=== PATIENT | male | born 1950 | race Two or more races ===

== ENCOUNTER 2021-09-02 02:29 | Inpatient (IN) | payer MEDICARE, MEDICAID ==
[~2021-09-02] VITALS: Ht 170.2 cm; Wt 67.6 kg
[2021-09-02 02:59] LABS: BASOPHILS % (AUTO) 0.9 % (0.0-2.0); EOSINOPHILS % (AUTO) 0.1 % (1.0-6.0); HEMOGLOBIN 12.8 g/dL (13.5-17.5); LYMPHOCYTES # (AUTO) 1.4 K/uL (1.0-4.8); LYMPHOCYTES % (AUTO) 10.5 % (22.0-44.0); MEAN CORPUSCULAR HEMOGLOBIN 26.4 pg (26.0-34.0); MEAN CORPUSCULAR HGB CONC 32.9 G/dL (31.0-37.0); MEAN CORPUSCULAR VOLUME 80 fL (80-100); MONOCYTES # (AUTO) 1.1 K/uL (0.1-1.0); MONOCYTES % (AUTO) 8.3 % (2.0-9.0); NEUTROPHILS # (AUTO) 10.9 K/uL (1.8-7.7); NEUTROPHILS % (AUTO) 80.2 % (40.0-70.0); PLATELET COUNT (AUTO) 492 K/uL (150-450); RED BLOOD CELL COUNT(AUTO) 4.86 MIL/uL (4.50-5.90); RED CELL DISTRIBUTION WIDTH 20.5 % (11.5-14.5)
[2021-09-02 03:12] LABS: ANION GAP 13 mmol/L (8-16); CALCIUM, TOTAL 9.5 mg/dL (8.8-10.5); CARBON DIOXIDE 27 mmol/L (22-29); CHLORIDE 93 mmol/L (98-107); GLUCOSE,RANDOM 140 mg/dL (70-110); SODIUM SERUM 133 mmol/L (136-145); UREA NITROGEN, BLOOD 42 mg/dL (7-18)
[2021-09-02 03:13] LABS: GLOMERULAR FILTR. RATE CALC 40 mL/min (>60)
[2021-09-02 03:15] LABS: ALANINE AMINOTRANSFERASE 135 U/L (12-78); ALBUMIN 3.4 g/dL (3.4-5.0); ALKALINE PHOSPHATASE 115 U/L (46-116); ASPARTATE AMINOTRANSFERASE 45 U/L (15-37); BILIRUBIN,TOTAL 3.9 mg/dL (0.1-1.0); TOTAL PROTEIN, SERUM 7.9 g/dL (6.4-8.2)
[2021-09-02] MEDS ORDERED: DIAZ2 PO ×2 (03:41→03:43)
[2021-09-02] MEDS ORDERED: ALPR-705 PO (03:43)
[2021-09-02] MEDS ORDERED: APIX5TAB PO (03:48)
[2021-09-02] MEDS ORDERED: SPIR-37 PO (03:48)
[2021-09-02] MEDS ORDERED: AMIO200T68 PO (03:48)
[2021-09-02] MEDS ORDERED: FURO40 PO (03:48)
[2021-09-02] MEDS ORDERED: DAPA10TA PO (03:48)
[2021-09-02] MEDS ORDERED: VALS40TA4 PO (03:48)
[2021-09-02] MEDS ORDERED: ASPI-1450 PO (03:48)
[2021-09-02 04:03] LABS: COVID AG,FIA SOURCE NASAL SWAB
[2021-09-02] MEDS ORDERED: HALOPERIDOL 5 MG TABLET PO PRN (04:15)
[2021-09-02] MEDS: LORazepam 2 MG TABLET PO PRN (04:18)
[2021-09-02 06:41] LABS: APPEARANCE,URINE CLEAR (CLEAR); BILIRUBIN,URINE NEGATIVE (NEGATIVE); GLUCOSE, URINE (UA) >=1000 mg/dL (NEGATIVE); KETONES,URINE NEGATIVE (NEGATIVE); LEUKOCYTE ESTERASE ,URINE NEGATIVE (NEGATIVE); NITRATE,URINE NEGATIVE (NEGATIVE); OCCULT BLOOD,URINE NEGATIVE (NEGATIVE); PROTEIN,URINE NEGATIVE (NEGATIVE); SPECIFIC GRAVITIY, URINE 1.018 (1.003-1.030); UROBILINOGEN,URINE <=1.0 mg/dL (<=1.0)
[2021-09-02 06:47] LABS: AMPHET/METH SCREEN,URINE NEGATIVE (NEGATIVE); BARBITURATE SCREEN, URINE NEGATIVE (NEGATIVE); BENZODIAZEPINES SCREEN,URINE NEGATIVE (NEGATIVE); CANNABINOID SCREEN,URINE NEGATIVE (NEGATIVE); COCAINE SCREEN,URINE NEGATIVE (NEGATIVE); METHADONE SCREEN, URINE NEGATIVE (NEGATIVE); OPIATE SCREEN,URINE NEGATIVE (NEGATIVE)
[2021-09-02 06:49] LABS: BACTERIA,URINE None Seen /HPF (None Seen); RBC,URINE None Seen /HPF (0-2); WBC,URINE None Seen /HPF (0-5)
[2021-09-02 06:53] LABS: PHENCYCLIDINE SCREEN,URINE NEGATIVE (NEGATIVE)
[2021-09-02 10:57] VITALS: BP 140/43
[2021-09-02] MEDS ORDERED: ChlordiazePOXIDE HCL 25 MG CAPSULE PO PRN (11:45)
[2021-09-02] MEDS: FLUoxetine HCL 20 MG CAPSULE PO SCH (12:15)
[2021-09-02 12:39] VITALS: BP 107/53
[2021-09-02 12:40] VITALS: BP 107/53
[2021-09-02] MEDS: SPIRONOLACTONE 25 MG TABLET PO SCH (14:50)
[2021-09-02 16:44] VITALS: BP 94/48
[2021-09-02 16:51] VITALS: BP 108/65
[2021-09-02] MEDS: APIXABAN 5 MG TABLET PO SCH (17:00)
[2021-09-02] MEDS: AMIODARONE HCL 200 MG TABLET PO SCH (17:06)
[2021-09-02] MEDS: VALSARTAN 40 MG TABLET PO SCH (17:06)
[2021-09-02 17:32] LABS: GLUCOMETER DEV NAME(LOC) 3EX.2; GLUCOSE,POINT OF CARE 134 MG/DL (70-110)
[2021-09-03 05:32] LABS: GLUCOMETER DEV NAME(LOC) 3E.I 2; GLUCOSE,POINT OF CARE 107 MG/DL (70-110)
[2021-09-03] MEDS ORDERED: ChlordiazePOXIDE HCL 25 MG CAPSULE PO PRN (07:00)
[2021-09-03 08:00] VITALS: BP 113/57
[2021-09-03] MEDS ORDERED: ChlordiazePOXIDE HCL 25 MG CAPSULE PO SCH (09:00)
[2021-09-03] MEDS: ASPIRIN 81 MG CHEWABLE TABLET PO SCH (09:05)
[2021-09-03] MEDS: FLUoxetine HCL 20 MG CAPSULE PO SCH (09:05)
[2021-09-03] MEDS: APIXABAN 5 MG TABLET PO SCH ×2 (09:07→16:45)
[2021-09-03] MEDS: FUROSEMIDE 40 MG TABLET PO SCH (09:07)
[2021-09-03] MEDS: VALSARTAN 40 MG TABLET PO SCH ×2 (09:07→17:00)
[2021-09-03] MEDS: AMIODARONE HCL 200 MG TABLET PO SCH ×2 (09:07→17:00)
[2021-09-03] MEDS: SPIRONOLACTONE 25 MG TABLET PO SCH (09:09)
[2021-09-03] MEDS ORDERED: MAGNESIUM HYDROXIDE SUSPENSION 30 ML UDCUP PO PRN (11:15)
[2021-09-03] MEDS ORDERED: GuaiFENesin/D-METHORPHAN [SUGAR-FREE] 200-20MG/10 ML SYRUP UDCUP PO PRN (11:15)
[2021-09-03] MEDS ORDERED: ACETAMINOPHEN 325 MG TABLET PO PRN (11:15)
[2021-09-03] MEDS ORDERED: ALBUTEROL SULFATE HFA 90 MCG/PUFF 8 GM INHALER IH PRN (11:15)
[2021-09-03] MEDS ORDERED: PETROLATUM,WHITE 28 GM JELLY TP PRN (11:15)
[2021-09-03] MEDS ORDERED: NICOTINE 14 MG/24 HOUR PATCH TD PRN (11:15)
[2021-09-03] MEDS ORDERED: CloNIDine HCL 0.1 MG TABLET PO PRN (11:15)
[2021-09-03] MEDS ORDERED: LOPERAMIDE HCL 2 MG CAPSULE PO PRN (11:15)
[2021-09-03] MEDS ORDERED: DOCUSATE SODIUM 100 MG CAPSULE PO PRN (11:15)
[2021-09-03] MEDS ORDERED: MAG HYDROX/AL HYDROX/SIMETH ES 30 ML SUSPENSION UDCUP PO PRN (11:15)
[2021-09-03] MEDS ORDERED: ONDANSETRON HCL 4 MG TABLET PO PRN (11:15)
[2021-09-03 17:04] VITALS: BP 96/50
[2021-09-03 17:31] LABS: GLUCOMETER DEV NAME(LOC) 3EX.2; GLUCOSE,POINT OF CARE 130 MG/DL (70-110)
[2021-09-03 17:47] VITALS: BP 111/61
[2021-09-03] MEDS: ZOLPIDEM TARTRATE 10 MG TABLET PO PRN (22:12)
[2021-09-04 05:57] LABS: GLUCOMETER DEV NAME(LOC) 3E.I 2; GLUCOSE,POINT OF CARE 177 MG/DL (70-110)
[2021-09-04 08:43] VITALS: BP 117/65
[2021-09-04] MEDS: APIXABAN 5 MG TABLET PO SCH ×2 (09:38→16:43)
[2021-09-04] MEDS: AMIODARONE HCL 200 MG TABLET PO SCH ×2 (09:38→16:43)
[2021-09-04] MEDS: VALSARTAN 40 MG TABLET PO SCH ×2 (09:38→16:43)
[2021-09-04] MEDS: ASPIRIN 81 MG CHEWABLE TABLET PO SCH (09:39)
[2021-09-04] MEDS: FUROSEMIDE 40 MG TABLET PO SCH (09:39)
[2021-09-04] MEDS: FLUoxetine HCL 20 MG CAPSULE PO SCH (09:39)
[2021-09-04] MEDS: SPIRONOLACTONE 25 MG TABLET PO SCH (09:40)
[2021-09-04] MEDS ORDERED: METF-1211 PO (11:37)
[2021-09-04] MEDS ORDERED: METO25 PO (11:37)
[2021-09-04] MEDS ORDERED: ATOR40TA71 PO (11:37)
[2021-09-04] MEDS ORDERED: NITR0.4T50 SL (11:37)
[2021-09-04] MEDS ORDERED: ALBU8HFA IH (11:37)
[2021-09-04] MEDS ORDERED: QUET25TA36 PO (11:37)
[2021-09-04] MEDS ORDERED: LISI5TAB21 PO (11:37)
[2021-09-04] MEDS ORDERED: TAMS-13 PO (11:37)
[2021-09-04] MEDS ORDERED: SEMA0.25 SQ (11:37)
[2021-09-04 12:57] VITALS: BP 113/57
[2021-09-04] MEDS: LORazepam 2 MG TABLET PO PRN (14:38)
[2021-09-04 16:00] VITALS: BP 105/57
[2021-09-04 17:36] LABS: GLUCOMETER DEV NAME(LOC) 3EX.2; GLUCOSE,POINT OF CARE 140 MG/DL (70-110)
[2021-09-04] MEDS: ZOLPIDEM TARTRATE 10 MG TABLET PO PRN (21:19)
[2021-09-05] MEDS: LORazepam 2 MG TABLET PO PRN ×2 (00:39→16:15)
[2021-09-05 05:46] LABS: GLUCOMETER DEV NAME(LOC) 3E.I 2; GLUCOSE,POINT OF CARE 103 MG/DL (70-110)
[2021-09-05 06:33] LABS: APPEARANCE,URINE CLEAR (CLEAR); BILIRUBIN,URINE NEGATIVE (NEGATIVE); GLUCOSE, URINE (UA) TRACE mg/dL (NEGATIVE); KETONES,URINE NEGATIVE (NEGATIVE); LEUKOCYTE ESTERASE ,URINE MODERATE (NEGATIVE); NITRATE,URINE NEGATIVE (NEGATIVE); OCCULT BLOOD,URINE NEGATIVE (NEGATIVE); PROTEIN,URINE TRACE mg/dL (NEGATIVE); SPECIFIC GRAVITIY, URINE 1.021 (1.003-1.030)
[2021-09-05] MEDS ORDERED: ChlordiazePOXIDE HCL 10 MG CAPSULE PO PRN (07:00)
[2021-09-05 07:43] LABS: RBC,URINE None Seen /HPF (0-2)
[2021-09-05 07:44] LABS: BACTERIA,URINE Moderate /HPF (None Seen)
[2021-09-05] MEDS: FUROSEMIDE 40 MG TABLET PO SCH (08:36)
[2021-09-05] MEDS: APIXABAN 5 MG TABLET PO SCH ×2 (08:36→16:55)
[2021-09-05] MEDS: ASPIRIN 81 MG CHEWABLE TABLET PO SCH (08:36)
[2021-09-05] MEDS: AMIODARONE HCL 200 MG TABLET PO SCH ×2 (08:37→16:55)
[2021-09-05] MEDS: VALSARTAN 40 MG TABLET PO SCH ×2 (08:37→16:55)
[2021-09-05] MEDS: FLUoxetine HCL 20 MG CAPSULE PO SCH (08:38)
[2021-09-05] MEDS: SPIRONOLACTONE 25 MG TABLET PO SCH (08:38)
[2021-09-05 08:58] VITALS: BP 120/60
[2021-09-05] MEDS ORDERED: ChlordiazePOXIDE HCL 10 MG CAPSULE PO SCH (09:00)
[2021-09-05 16:17] VITALS: BP 112/60
[2021-09-05 16:41] LABS: GLUCOMETER DEV NAME(LOC) 3E.I 2; GLUCOSE,POINT OF CARE 134 MG/DL (70-110)
[2021-09-06] MEDS: LORazepam 2 MG TABLET PO PRN ×2 (00:49→23:30)
[2021-09-06 06:51] LABS: GLUCOMETER DEV NAME(LOC) 3E.I 2; GLUCOSE,POINT OF CARE 116 MG/DL (70-110)
[2021-09-06] MEDS ORDERED: ChlordiazePOXIDE HCL 10 MG CAPSULE PO PRN (07:00)
[2021-09-06] MEDS: APIXABAN 5 MG TABLET PO SCH ×2 (08:19→16:50)
[2021-09-06] MEDS: VALSARTAN 40 MG TABLET PO SCH ×4 (08:19→16:50)
[2021-09-06] MEDS: SPIRONOLACTONE 25 MG TABLET PO SCH ×3 (08:19→10:56)
[2021-09-06] MEDS: FUROSEMIDE 40 MG TABLET PO SCH ×3 (08:20→10:56)
[2021-09-06] MEDS: AMIODARONE HCL 200 MG TABLET PO SCH ×4 (08:21→16:50)
[2021-09-06] MEDS: FLUoxetine HCL 20 MG CAPSULE PO SCH (08:22)
[2021-09-06] MEDS: ASPIRIN 81 MG CHEWABLE TABLET PO SCH (08:22)
[2021-09-06] MEDS: CEPHALEXIN MONOHYDRATE 250 MG CAPSULE PO SCH ×3 (08:24→16:50)
[2021-09-06 10:26] LABS: BASOPHILS % (AUTO) 0.5 % (0.0-2.0); EOSINOPHILS % (AUTO) 0.2 % (1.0-6.0); HEMATOCRIT 38.7 % (41-53); HEMOGLOBIN 12.3 g/dL (13.5-17.5); LYMPHOCYTES # (AUTO) 1.4 K/uL (1.0-4.8); LYMPHOCYTES % (AUTO) 6.6 % (22.0-44.0); MEAN CORPUSCULAR HEMOGLOBIN 25.8 pg (26.0-34.0); MEAN CORPUSCULAR HGB CONC 31.7 G/dL (31.0-37.0); MEAN CORPUSCULAR VOLUME 82 fL (80-100); MONOCYTES # (AUTO) 2.2 K/uL (0.1-1.0); MONOCYTES % (AUTO) 9.8 % (2.0-9.0); NEUTROPHILS # (AUTO) 18.1 K/uL (1.8-7.7); NEUTROPHILS % (AUTO) 82.9 % (40.0-70.0); PLATELET COUNT (AUTO) 363 K/uL (150-450); RED BLOOD CELL COUNT(AUTO) 4.75 MIL/uL (4.50-5.90); RED CELL DISTRIBUTION WIDTH 21.5 % (11.5-14.5)
[2021-09-06 10:32] LABS: ANION GAP 6 mmol/L (8-16); CALCIUM, TOTAL 8.7 mg/dL (8.8-10.5); CARBON DIOXIDE 26 mmol/L (22-29); CHLORIDE 98 mmol/L (98-107); CREATININE 1.07 mg/dL (0.60-1.30); GLOMERULAR FILTR. RATE CALC > 60 mL/min (>60); GLUCOSE,RANDOM 152 mg/dL (70-110); POTASSIUM 4.3 mmol/L (3.5-5.1); SODIUM SERUM 130 mmol/L (136-145); UREA NITROGEN, BLOOD 17 mg/dL (7-18)
[2021-09-06 17:35] VITALS: BP 109/65
[2021-09-06 17:36] LABS: GLUCOMETER DEV NAME(LOC) 3E.I 2; GLUCOSE,POINT OF CARE 109 MG/DL (70-110)
[2021-09-07 00:17] VITALS: BP 114/77
[2021-09-07 06:11] LABS: GLUCOMETER DEV NAME(LOC) 3E.I 2; GLUCOSE,POINT OF CARE 100 MG/DL (70-110)
[2021-09-07 09:00] VITALS: BP 116/65
[2021-09-07] MEDS: ASPIRIN 81 MG CHEWABLE TABLET PO SCH (09:04)
[2021-09-07] MEDS: CEPHALEXIN MONOHYDRATE 250 MG CAPSULE PO SCH ×3 (09:05→17:30)
[2021-09-07] MEDS: FUROSEMIDE 40 MG TABLET PO SCH (09:05)
[2021-09-07] MEDS: APIXABAN 5 MG TABLET PO SCH ×2 (09:05→17:29)
[2021-09-07] MEDS: VALSARTAN 40 MG TABLET PO SCH ×2 (09:05→17:29)
[2021-09-07] MEDS: FLUoxetine HCL 20 MG CAPSULE PO SCH (09:05)
[2021-09-07] MEDS: SPIRONOLACTONE 25 MG TABLET PO SCH (09:06)
[2021-09-07] MEDS: AMIODARONE HCL 200 MG TABLET PO SCH ×2 (09:06→17:29)
[2021-09-07 16:32] VITALS: BP 128/67
[2021-09-07 17:36] LABS: GLUCOMETER DEV NAME(LOC) 3EX.2; GLUCOSE,POINT OF CARE 198 MG/DL (70-110)
[2021-09-07 20:18] VITALS: BP 119/77
[2021-09-07] MEDS: ZOLPIDEM TARTRATE 10 MG TABLET PO PRN (22:20)
[2021-09-08 06:31] LABS: GLUCOMETER DEV NAME(LOC) 3E.I 2; GLUCOSE,POINT OF CARE 107 MG/DL (70-110)
[2021-09-08 07:30] LABS: COVID AG,FIA SOURCE NASAL SWAB
[2021-09-08] MEDS: ASPIRIN 81 MG CHEWABLE TABLET PO SCH (08:42)
[2021-09-08] MEDS: VALSARTAN 40 MG TABLET PO SCH ×2 (08:43→17:04)
[2021-09-08] MEDS: CEPHALEXIN MONOHYDRATE 250 MG CAPSULE PO SCH ×3 (08:43→17:04)
[2021-09-08] MEDS: FUROSEMIDE 40 MG TABLET PO SCH (08:44)
[2021-09-08] MEDS: AMIODARONE HCL 200 MG TABLET PO SCH ×2 (08:44→17:04)
[2021-09-08] MEDS: APIXABAN 5 MG TABLET PO SCH ×2 (08:44→17:04)
[2021-09-08] MEDS: FLUoxetine HCL 20 MG CAPSULE PO SCH (08:44)
[2021-09-08] MEDS: SPIRONOLACTONE 25 MG TABLET PO SCH (08:44)
[2021-09-08 09:11] VITALS: BP 127/77
[2021-09-08 16:00] VITALS: BP 109/68
[2021-09-08 17:26] LABS: GLUCOMETER DEV NAME(LOC) 3E.I 2; GLUCOSE,POINT OF CARE 130 MG/DL (70-110)
[2021-09-08] MEDS: ZOLPIDEM TARTRATE 10 MG TABLET PO PRN (22:01)
[2021-09-09 06:16] LABS: GLUCOMETER DEV NAME(LOC) 3E.I 2; GLUCOSE,POINT OF CARE 95 MG/DL (70-110)
[2021-09-09 08:00] VITALS: BP 123/65
[2021-09-09] MEDS: FLUoxetine HCL 20 MG CAPSULE PO SCH (08:41)
[2021-09-09] MEDS: VALSARTAN 40 MG TABLET PO SCH (08:41)
[2021-09-09] MEDS: CEPHALEXIN MONOHYDRATE 250 MG CAPSULE PO SCH ×2 (08:42→13:06)
[2021-09-09] MEDS: AMIODARONE HCL 200 MG TABLET PO SCH (08:42)
[2021-09-09] MEDS: APIXABAN 5 MG TABLET PO SCH (08:44)
[2021-09-09] MEDS: ASPIRIN 81 MG CHEWABLE TABLET PO SCH (08:44)
[2021-09-09] MEDS: FUROSEMIDE 40 MG TABLET PO SCH (08:45)
[2021-09-09] MEDS: SPIRONOLACTONE 25 MG TABLET PO SCH (08:45)
[2021-09-09] MEDS ORDERED: FLUO20CA36 PO (14:27)
[2021-09-09] MEDS ORDERED: CEPH-556 PO (14:27)
[2021-09-09 16:12] VITALS: BP 116/69
== END 2021-09-09 16:41 | DRG 885 ==
LOC: EMS 02:32 → 3EX 06:41
PROVIDERS: ADMIT Psychiatry & Neurology Child & Adolescent Psychiatry; ATTEND Psychiatry & Neurology Child & Adolescent Psychiatry
DX: F33.2 Major depressive disorder, recurrent severe without psychotic features (principal); N18.9 Chronic kidney disease, unspecified; I13.0 Hypertensive heart and chronic kidney disease with heart failure and stage 1 through stage 4 chronic kidney disease, or unspecified chronic kidney disease; I48.20 Chronic atrial fibrillation, unspecified; Z20.822 Contact with and (suspected) exposure to COVID-19; D64.9 Anemia, unspecified; E78.00 Pure hypercholesterolemia, unspecified; K21.9 Gastro-esophageal reflux disease without esophagitis; I50.9 Heart failure, unspecified; E11.22 Type 2 diabetes mellitus with diabetic chronic kidney disease; D69.6 Thrombocytopenia, unspecified; Z59.00 Homelessness unspecified
CPT/HCPCS: 51701; 80048; 80053; 81001; 82962; 85025; 87081; 87086; 99285; G0378; G0480